=== PATIENT | male | born 1990 | race Caucasian/White ===

== ENCOUNTER 2017-01-11 10:32 | Emergency (ER) | payer OTHER ==
[2017-01-11 10:45] VITALS: BP 0/0
--- NOTE | 2017-01-11 10:51 | ED CRITICAL CARE ---
History of Present Illness General Chief Complaint: Cardiopulmonary Resuscitation Stated Complaint: CPR Source: old records, EMS, police Exam Limitations: clinical condition Vital Signs & Intake/Output Vital Signs & Intake/Output Vital Signs Date Time Temp Pulse Resp B/P Pulse O2 O2 Flow FiO2 Ox Delivery Rate 01/11 1045 0 0 0/0 (ARJUN RIVERA MD) Allergies Coded Allergies: UNOBTAINABLE (01/11/17) Reconcile Medications Unable to Obtain Home Medication History Triage Note: . Triage Nurses Notes Reviewed? yes Onset: Just prior to arrival Duration: hour(s):, constant Timing: recent history Injury Environment: home Pain Location: none Method of Injury: opiate overdose HPI: Patient last seen alive 10 PM and found prior to admission unresponsive and not breathing. EMS called ACLS started for asystole. Past History Travel History Traveled to [place] past 21 day No Medical History Any Pertinent Medical History? see below for history Psychiatric: opioid dependence, mood disorder Surgical History Surgical History: non-contributory Psychosocial History What is your primary language Citizen Of [place] Family History Hx Contributory? No Review of Systems Review of Systems Constitutional: Reports: see HPI, weakness. Eyes: Reports: no symptoms. Ears, Nose, Throat, Mouth: Reports: no symptoms. Respiratory: Reports: no symptoms. Cardiovascular: Reports: no symptoms. Gastrointestinal/Abdominal: Reports: no symptoms. Genitourinary: Reports: no symptoms. Musculoskeletal: Reports: no symptoms. Skin: Reports: no symptoms. Neurological/Psychological: Reports: see HPI, weakness. All Other Systems: Reviewed and Negative Physical Exam Physical Exam General Appearance: severe distress Head: atraumatic, normal appearance Eyes: Bilateral: other (pupils fixed dilated). Ears, Nose, Throat, Mouth: decreased hearing Neck: normal inspection Respiratory: mechanical breath sounds Cardiovascular: no heart sounds Peripheral Pulses: 0 carotid (R), 0 carotid (L), 0 femoral (R), 0 femoral (L) Gastrointestinal: soft Back: normal inspection Extremities: no ligament instability Neurologic/Psych: motor/sensory deficits Skin: cyanosis, pallor Core Measures ACS in differential dx? Yes ASA ordered for poss ACS? No-other contraindication CVA/TIA Diagnosis: No Severe Sepsis Present: No Septic Shock Present: No Progress Differential Diagnoses I considered the following diagnoses in my evaluation of the patient: opiate overdose respiratory failure asystole Plan of Care: Pronounced 10:33 AM Initial ED EKG: none Rhythm Strip: asystole Departure Departure Time of Disposition: 1033 Disposition: Condition: Stable Clinical Impression Primary Impression: Opiate overdose Qualifiers: Encounter type: initial encounter Injury intent: accidental or unintentional Qualified Code: T40.601A - Poisoning by unspecified narcotics, accidental (unintentional), initial encounter Secondary Impressions: Cardiac asystole Referrals: MONTANA SERRANO MD Departure Forms: General Discharge Information Prescriptions: Current Visit Scripts Unable to Obtain Home Medication History Comments Family notified ME notified and selected as a case packet completed Procedures Ultrasound Ultrasound: cardiac: no cardiac activity Critical Care Note Critical Care Note Critical Care Time: 30-74 min (35)
== END 2017-01-11 10:33 | disposition expired ==
LOC: ERH 10:32
DX: T40.2X4A Poisoning by other opioids, undetermined, initial encounter (principal)
CPT/HCPCS: 1387; 94799